=== PATIENT | male | born 1960 ===

== ENCOUNTER 2016-09-06 23:42 | Emergency (ER) | payer OTHER ==
[2016-09-06 23:42] VITALS: BMI 28.3
[2016-09-06 23:51] VITALS: BP 165/84; PULSE 61; RESP 18; TEMP 98.7; O2SAT 99
[2016-09-07] MEDS ORDERED: Sodium Chloride 0.9% 1,000 ML IV STA (01:05)
--- NOTE | 2016-09-07 01:14 | ED PDOC ---
HPI: Abdomen Time Seen by Provider: 09/06/16 23:50 Chief Complaint (Nursing): Abdominal Pain Chief Complaint (Provider): Abdominal Pain History Per: Patient History/Exam Limitations: no limitations Onset/Duration Of Symptoms: Hrs ((21:00)) Outside of [place] travel?: No Severity: Mild Location Of Pain/Discomfort: RLQ Associated Symptoms: Nausea. denies: Fever, Vomiting, Diarrhea Additional Complaint(s): 55 y/o male presenting to the ED with right flank pain. PT states the pain began at 21:00 yesterday evening and it has been radiating to the Right Lower Quadrant. Pt states he has had nausea but denies fever, vomiting or diarrhea. PT has a past medical history of kidney stones and denies smoking, drugs or alcohol use. Past Medical History Reviewed: Historical Data, Nursing Documentation, Vital Signs Vital Signs: Last Vital Signs Temp 98.7 F 09/06/16 23:48 Pulse 61 09/06/16 23:48 Resp 18 09/06/16 23:48 BP 165/84 H 09/06/16 23:48 Pulse Ox 99 09/07/16 04:19 - Medical History PMH: Kidney Stones - Surgical History Surgical History: No Surg Hx - Family History Family History: States: Unknown Family Hx - Social History Current smoker - smoking cessation education provided: No Alcohol: None Drugs: Denies - Home Medications Home Medications: Ambulatory Orders Medication Instructions Recorded Ciprofloxacin HCl [Cipro] 500 mg PO BID #10 tablet 10/23/15 Oxycodone HCl/Acetaminophen 1 tab PO Q6 PRN #18 tab 10/23/15 [Percocet 325 mg-5 mg] Tamsulosin HCl [Flomax] 0.4 mg PO DAILY #14 cap.er.24h 10/23/15 Nitrofurantoin Macrocrystals 100 mg PO BID #14 cap 09/07/16 [Macrobid] - Allergies Allergies/Adverse Reactions: Allergies Allergy/AdvReac Type Severity Reaction Status Date / Time No Known Allergies Allergy Verified 09/06/16 23:51 Review of Systems ROS Statement: Except As Marked, All Systems Reviewed And Found Negative Respiratory: Negative for: Shortness of Breath Gastrointestinal: Positive for: Nausea, Abdominal Pain ((+)Right Flank Pain, Radiating to RLQ). Negative for: Vomiting, Diarrhea Physical Exam - Reviewed Nursing Documentation Reviewed: Yes Vital Signs Reviewed: Yes - Physical Exam Appears: Positive for: Non-toxic, No Acute Distress Skin: Positive for: Normal Color, Warm Respiratory: Positive for: Normal Breath Sounds. Negative for: Respiratory Distress Gastrointestinal/Abdominal: Positive for: Soft, Tenderness ((+)RLQ Tenderness, Right Flank Pain) Neurologic/Psych: Positive for: Alert, Oriented. Negative for: Motor/Sensory Deficits - Laboratory Results Result Diagrams: 09/07/16 01:44 09/07/16 01:44 - ECG O2 Sat by Pulse Oximetry: 99 (RA) Pulse Ox Interpretation: Normal Medical Decision Making Medical Decision Making: Time: 104 Initial impression: Abdominal Pain R/O UTI, R/O Kidney Stones Initial plan: --ABD & PELVIS --CMP --LIPASE --CBC --FAMOTIDINE 20MG --KETOROLAC 30MG --SODIUM CHLORIDE 1,000ML --ONDANSETRON 4MG --URINE C&S --URINALYSIS 0400:Reassess CT Scan reveals stones were passed, PT states they are in less pain. Discharge Instructions: PT is to follow up with Urologist EXAM: CT Abdomen and Pelvis Without Intravenous Contrast CLINICAL HISTORY: 55 years old, male; Pain; Abdominal pain; Flank; Right; Additional info: R flank pain rule out stone TECHNIQUE: Axial computed tomography images of the abdomen and pelvis without intravenous contrast. This CT exam was performed using one or more of the following dose reduction techniques: automated exposure control, adjustment of the mA and/or kV according to patient size, and/ or use of iterative reconstruction technique. Coronal and sagittal reformatted images were created and reviewed. EXAM DATE/TIME: 09/07/2016 1:05 AM COMPARISON: CT - ABD PELVIS W/O PO OR IV CONT 10/23/2015 1:26:39 PM FINDINGS: Lower thorax: Heart size is normal. Lung bases are clear ABDOMEN: Liver: unremarkable Gallbladder and bile ducts: Gallbladder is distended. There are multiple gallstones. Common bile duct is unremarkable. Pancreas: Pancreas is mildly atrophic with fatty replacement. Spleen: Spleen is unremarkable. There is an accessory spleen in the left upper quadrant. Adrenals: unremarkable Kidneys and ureters: Left kidney and ureter are unremarkable. There are multiple nonobstructing right renal stones. There is right pelvocaliectasis and ureterectasis. There are no right ureteral stones. Stomach and bowel: Stomach is distended with an air fluid level. Rotation is normal. There is no obstruction. There is fecalization of the terminal ileum. Appendix is unremarkable.Colon is incompletely distended which limits evaluation. Appendix: See above. PELVIS: Bladder: Bladder is almost empty. Reproductive: Prostate is mildly enlarged. There is prominence of the seminal vesicles. ABDOMEN and PELVIS: Intraperitoneal space: There is no free air or free fluid. Bones/joints: There are degenerative changes in the osseus structures. Soft tissues: unremarkable Vasculature: There are calcified phleboliths. Vascular structures are unremarkable. Lymph nodes: unremarkable IMPRESSION: Nonobstructing right renal stones; right pelvocaliectasis and ureterectasis suggests recent stone passage; gallstones Additional findings as described above. pt made awre of CT results given macrobid for questionable UTI told to follow up with urology pt much more comfortable at this time. sleeping comfortably.' Scribe Attestation: Documented by Cleo Martínez, acting as a scribe for Filomena Vasquez MD. Scribe Attestation: All medical record entries made by the Scribe were at my direction and personally dictated by me. I have reviewed the chart and agree that the record accurately reflects my personal performance of the history, physical exam, medical decision making, and the department course for this patient. I have also personally directed, reviewed, and agree with the discharge instructions and disposition. Disposition - Clinical Impression Clinical Impression: Renal colic on right side, Abdominal pain - Patient ED Disposition Is Patient to be Admitted: No Counseled Patient/Family Regarding: Studies Performed, Diagnosis, Need For Followup - Disposition Referrals: [facility] [Outside] Tio Thomas MD [Medical Doctor] - Disposition: Routine/Home Disposition Time: 01:00 Condition: IMPROVED Additional Instructions: follow up with urology as instructd return to the ED with any worsening or concerning symptoms. take motrin for pain Prescriptions: Nitrofurantoin Macrocrystals [Macrobid] 100 mg PO BID #14 cap Instructions: Kidney Stones (ED) Print Language: KYRGYZ
[2016-09-07 01:48] LABS: BASO % 0.3 % (0.0-2.0); EOS % 0.1 % (0.0-4.0); HEMATOCRIT 36.1 % (35.0-51.0); LYMPH # 0.8 K/uL (1.0-4.3); LYMPH % 6.4 % (20.0-40.0); MEAN CELL VOLUME 87.7 fl (80.0-94.0); MEAN CORPUSCULAR HEMOGLOBIN 29.5 pg (27.0-31.0); MEAN CORPUSCULAR HGB CONC 33.7 g/dL (33.0-37.0); MONO # 0.5 K/uL (0.0-0.8); MONO % 3.8 % (0.0-10.0); NEUT # 10.9 K/uL (1.8-7.0); NEUT % 89.4 % (50.0-75.0); PLATELET COUNT 203 K/uL (130-400); RED CELL DISTRIBUTION WIDTH 13.5 % (11.5-14.5); WHITE BLOOD COUNT 12.2 K/uL (4.8-10.8)
[2016-09-07 02:02] LABS: ALB/GLOB RATIO 1.4 (1.0-2.1); ALKALINE PHOSPHATASE 96 U/L (38-126); ALT/SGPT 39 U/L (21-72); AST/SGOT 25 U/L (17-59); BLOOD UREA NITROGEN 17 mg/dl (9-20); CALCIUM 9.1 mg/dL (8.4-10.2); CARBON DIOXIDE 22 mmol/L (22-30); CHLORIDE 100 mmol/L (98-107); GFR AFRICAN-AMERICAN > 60; GLUCOSE,RANDOM 152 mg/dL (75-110); LIPASE 121 U/L (23-300); SODIUM 135 mmol/l (132-148); TOTAL PROTEIN 7.9 G/DL (6.3-8.2)
[2016-09-07 02:09] LABS: RBC URINE 625 /hpf (0-3); URINE BACTERIA RARE (<OCC); URINE BILIRUBIN NEGATIVE (NEGATIVE); URINE BLOOD LARGE (NEGATIVE); URINE COLOR YELLOW (YELLOW); URINE GLUCOSE (UA) NEG (Normal); URINE KETONE NEGATIVE (NEGATIVE); URINE LEUKOCYTE ESTERASE TRACE Leu/uL (Negative); URINE PROTEIN 30 mg/dL (NEGATIVE); URINE URIC ACID CRYSTALS RARE /hpf (<OCC); URINE UROBILINOGEN 0.2-1.0 mg/dL (0.2-1.0); WBC URINE 11 /hpf (0-5)
[2016-09-07 03:34] LABS: NEUTROPHIL 90 % (42-75); TOTAL CELLS COUNTED 100
[2016-09-07 03:38] LABS: LARGE PLATELETS PRESENT
--- NOTE | 2016-09-07 10:48 | CT ---
PROCEDURE: CT Abdomen and Pelvis without Oral or IV contrast. HISTORY: r flank pain rule out stone COMPARISON: CT abdomen and pelvis without oral or IV contrast performed 10/23/15 TECHNIQUE: Contiguous axial images of the abdomen and pelvis. No oral or IV contrast administered. Coronal and Sagittal reformats generated and reviewed. Radiation dose: Total exam DLP = 511.32 mGy-cm. This CT exam was performed using one or more of the following dose reduction techniques: Automated exposure control, adjustment of the mA and/or kV according to patient size, and/or use of iterative reconstruction technique. FINDINGS: There is limited evaluation of the solid organs without the administration of IV contrast. LOWER THORAX: No visible consolidation, pleural effusion, or pneumothorax. Small hiatal hernia. LIVER: Too small to characterize 6 mm hepatic hypodensity ; statistically likely cyst or hemangioma. GALLBLADDER AND BILE DUCTS: Cholelithiasis. PANCREAS: Mild fatty atrophy of the pancreas. SPLEEN: 6 mm probable splenule. Otherwise unremarkable unenhanced appearance. ADRENALS: Unremarkable unenhanced appearance. KIDNEYS AND URETERS: Numerous nonobstructing right renal calculi. At least moderate right-sided hydronephrosis and hydroureter. No right ureteral calculi evident. Unremarkable noncontrast appearance of the left kidney in ureter. BLADDER: Decompressed urinary bladder limits evaluation. REPRODUCTIVE: The prostate gland measures approximately 4.3 x 5.9 cm. APPENDIX: The appendix appears within normal limits of caliber. No secondary signs of acute appendicitis. BOWEL: Ingested debris and fluid within the incompletely distended urinary bladder. Lack of oral contrast limits evaluation for bowel pathology. The bowel loops appear within normal limits of caliber without evidence of intestinal obstruction. Fecalization of the terminal ileum. PERITONEUM: No significant free fluid. No definite free air. LYMPH NODES: No bulky lymphadenopathy identified. VASCULATURE: No aortic aneurysm. BONES: Multilevel degenerative changes. Schmorl's nodes at several vertebral bodies. OTHER FINDINGS: None. IMPRESSION: At least moderate right-sided hydronephrosis and hydroureter. Numerous nonobstructing right renal calculi. Correlate clinically for possibility of recently passed calculus. Cholelithiasis. Enlarged prostate gland. Recommend correlation with PSA. Additional findings as above. Preliminary impression was provided by virtual radiologic.
== END 2016-09-07 04:25 | disposition home or self-care (01) ==
LOC: H.ER 23:42
DX: N20.0 Calculus of kidney (principal); K80.20 Calculus of gallbladder without cholecystitis without obstruction; N40.0 Benign prostatic hyperplasia without lower urinary tract symptoms